=== PATIENT | male | born 1990 | race Caucasian/White ===

== ENCOUNTER 2018-06-22 16:23 | Emergency (ER) | payer OTHER ==
[2018-06-22] MEDS ORDERED: NS 1,000 ML IV ONE (16:34)
--- NOTE | 2018-06-22 16:58 | EDPHY ---
H & P Stated Complaint: dizzy Time Seen by Provider: 06/22/18 16:33 HPI/ROS: CHIEF COMPLAINT: Dizzy spells HISTORY OF PRESENT ILLNESS: 27-year-old male presents with a 3 week history of dizziness. 3 weeks ago, he had an allergic reaction. The allergic reaction consisting of hives and bumps on his tongue. He took Benadryl x2 doses with complete relief. The day following the allergic reaction, he developed dizzy spells. The dizziness tends to occur when he stands up quickly, but also occurs randomly. He had 1 episode of brief chest pain and became very concerned about the possibility of a heart attack. His father of a heart attack, which heightened his concern. He is quite anxious that there is something seriously wrong. No recent illness. REVIEW OF SYSTEMS: complete 10 point ROS reviewed and is negative except for the noted elements in the HPI Source: Patient - Personal History Current Tetanus/Diphtheria Vaccine: Yes Current Tetanus Diphtheria and Acellular Pertussis (TDAP): Yes - Medical/Surgical History Hx Asthma: No Hx Chronic Respiratory Disease: No Hx Diabetes: No Hx Cardiac Disease: No Hx Renal Disease: No Hx Cirrhosis: No Hx Alcoholism: No Hx HIV/AIDS: No Hx Splenectomy or Spleen Trauma: No Other PMH: esophagitis, - Social History Smoking Status: Never smoked Alcohol Use: Sober Drug Use: None - Physical Exam Exam: General Appearance: Alert, pleasant and talkative Eyes: Pupils equal and round, no conjunctival pallor or injection ENT, Mouth: Mucous membranes moist Neck: Normal inspection Respiratory: Lungs are clear to auscultation Cardiovascular: Regular rate and rhythm, no murmur Gastrointestinal: Abdomen is soft and nontender Neurological: A&O, nonfocal, normal gait Skin: Warm and dry Extremities: Nontender, no pedal edema Psychiatric: Anxious Constitutional: Initial Vital Signs Temperature (C) 36.8 C 06/22/18 16:28 Heart Rate 98 06/22/18 16:28 Respiratory Rate 16 06/22/18 16:28 Blood Pressure 132/84 H 06/22/18 16:28 O2 Sat (%) 94 06/22/18 16:28 O2 Delivery Mode Room Air Allergies/Adverse Reactions: No Known Allergies Allergy (Unverified 06/22/18 16:28) Home Medications: Medication Instructions Recorded Zakiya Allergy 06/22/18 Medical Decision Making - Diagnostics EKG Interpretation: EKG interpreted by me reveals normal sinus rhythm, rate 99, no ST or T segment changes. Interpretation: Normal EKG ED Course/Re-evaluation: This patient presents with episodic dizziness. On physical exam, he is mildly tachycardic and very anxious. Stat EKG reveals no evidence of ischemia or dysrhythmia. Results were discussed with the patient and he is relieved that he has not had a heart attack. Calmer after the EKG. Laboratory tests are unremarkable and results were discussed with the patient. TSH is pending and he will call back in the morning for TSH results. IV normal saline 1 L given. Feel that he is safe and stable for discharge home. security monitor reveals no evidence of dysrhythmia. In addition he is not anemic and electrolytes are normal. Unclear etiology of dizziness. Will follow up with PCP. Differential Diagnosis: Differential diagnosis includes though is not limited to cardiac dysrhythmia, CVA, TIA, GI bleed, sepsis, hypoglycemia. - Data Points Laboratory Results: Laboratory Results 06/22/18 17:35 06/22/18 17:10 06/22/18 06/22/18 06/22/18 17:35 17:10 17:10 WBC 7.91 10^3/uL 10^3/uL (3.80-9.50) RBC 5.27 10^6/uL 10^6/uL (4.40-6.38) Hgb 16.4 g/dL g/dL (13.7-17.5) Hct 46.2 % % (40.0-51.0) MCV 87.7 fL fL (81.5-99.8) MCH 31.1 pg pg (27.9-34.1) MCHC 35.5 g/dL g/dL (32.4-36.7) RDW 13.1 % % (11.5-15.2) Plt Count 286 10^3/uL 10^3/uL (150-400) MPV 9.0 fL fL (8.7-11.7) Neut % (Auto) 62.1 % % (39.3-74.2) Lymph % (Auto) 30.3 % % (15.0-45.0) Mcminn % (Auto) 5.7 % % (4.5-13.0) Eos % (Auto) 1.0 % % (0.6-7.6) Baso % (Auto) 0.5 % % (0.3-1.7) Nucleat RBC Rel Count 0.0 % % (0.0-0.2) Absolute Neuts (auto) 4.91 10^3/uL 10^3/uL (1.70-6.50) Absolute Lymphs (auto) 2.40 10^3/uL 10^3/uL (1.00-3.00) Absolute Monos (auto) 0.45 10^3/uL 10^3/uL (0.30-0.80) Absolute Eos (auto) 0.08 10^3/uL 10^3/uL (0.03-0.40) Absolute Basos (auto) 0.04 10^3/uL 10^3/uL (0.02-0.10) Absolute Nucleated RBC 0.00 10^3/uL 10^3/uL (0-0.01) Immature Gran % 0.4 % % (0.0-1.1) Immature Gran # 0.03 10^3/uL 10^3/uL (0.00-0.10) Sodium 140 mEq/L mEq/L (135-145) Potassium 4.5 mEq/L mEq/L (3.5-5.2) Chloride 107 mEq/L mEq/L (97-110) Carbon Dioxide 21 mEq/l L mEq/l (22-31) Anion Gap 12 mEq/L mEq/L (6-14) BUN 10 mg/dL mg/dL (7-23) Creatinine 0.8 mg/dL mg/dL (0.7-1.3) Estimated GFR > 60 Glucose 94 mg/dL mg/dL (70-100) Calcium 10.1 mg/dL mg/dL (8.5-10.4) TSH 1.430 uIU/mL uIU/mL (0.465-4.680) Medications Given: Discontinued Medications Sodium Chloride (Ns) 1,000 mls @ 0 mls/hr IV EDNOW ONE; Wide Open PRN Reason: Protocol Stop: 06/22/18 16:35 Last Admin: 06/22/18 16:49 Dose: 1,000 mls Departure - Departure Disposition: Home, Routine, Self-Care Clinical Impression: Dizziness Condition: Good Instructions: Dizziness (ED) Additional Instructions: Drink plenty of fluids. Return for worsening symptoms or any concerns. Referrals: Cici Wang MD [[facility] [place] Primary Care Provider] - As per Instructions
[2018-06-22 18:13] LABS: PLATELET COUNT 286 10^3/uL (150-400)
[2018-06-22 18:41] VITALS: BP 126/77
--- NOTE | 2018-06-22 20:05 | CPEKG ---
Test Reason : OPEN Blood Pressure : / mmHG Vent. Rate : 099 BPM Atrial Rate : 098 BPM P-R Int : 140 ms QRS Dur : 080 ms QT Int : 340 ms P-R-T Axes : 074 030 020 degrees QTc Int : 437 ms Sinus rhythm Confirmed by Kisha Muller ([id number]) on 06/22/2018 8:05:26 PM Referred By: KISHA MULLER Confirmed By:Kisha Muller
== END 2018-06-22 18:54 | disposition home or self-care (01) ==
DX: R42 Dizziness and giddiness (principal); E86.9 Volume depletion, unspecified